=== PATIENT | male | born 1950 | race Caucasian/White ===

== ENCOUNTER 2018-05-09 00:38 | Emergency (ER) | payer OTHER ==
[2018-05-09 00:59] LABS: ADD MAN DIFF? NO
[2018-05-09 01:00] LABS: WHITE BLOOD COUNT 13.9 10^3/ul (4.8-10.8)
[2018-05-09 01:00] LABS: BASOPHIL # 0.2 10^3/ul (0.0-0.1); BASOPHILS % 1.5 % (0.0-2.0); EOSINOPHILS # 1.5 10^3/ul (0.0-0.5); EOSINOPHILS % 11.1 % (0.0-7.0); HEMATOCRIT 43.3 % (42.0-52.0); HEMOGLOBIN 13.8 g/dl (14.0-18.0); LYMPHOCYTES # 3.6 10^3/ul (0.8-2.9); LYMPHOCYTES % 25.9 % (15.0-51.0); MEAN CORPUSCULAR HEMOGLOBIN 26.5 pg (29.0-33.0); MEAN CORPUSCULAR HGB CONC 31.9 g/dl (32.0-37.0); MEAN CORPUSCULAR VOLUME 83.1 fl (82.0-101.0); MEAN PLATELET VOLUME 10.7 fl (7.4-10.4); NEUTROPHIL # 7.5 10^3/ul (1.6-7.5); NEUTROPHILS % 54.2 % (39.0-77.0); PLATELET COUNT 321 10^3/UL (140-415); RED BLOOD COUNT 5.21 10^6/ul (4.70-6.10); RED CELL DISTRIBUTION WIDTH 16.1 % (11.5-14.5)
[2018-05-09] MEDS: morphine 4 MG/ML VIAL IV ×2 (01:10→02:17)
[2018-05-09] MEDS: LIDOCAINE/MYLANTA 40 ML BTL PO (01:10)
[2018-05-09] MEDS: SOD CHLORIDE 0.9% 1,000 ML IV (01:11)
[2018-05-09] MEDS: FAMOTIDINE 20 MG INJ IV (01:11)
[2018-05-09] MEDS: ONDANSETRON 4 MG INJ IV (01:11)
[2018-05-09 01:21] LABS: INR 0.86; PARTIAL THROMBOPLASTIN TIME 30.8 Sec (23.0-35.0); PROTIME 11.8 Sec (11.9-14.9); PT RATIO 0.9
[2018-05-09 01:37] LABS: ALANINE AMINOTRANSFERASE 21 IU/L (13-69); ALBUMIN 4.9 g/dl (3.3-4.9); ALBUMIN/GLOBULIN RATIO 1.13; ALKALINE PHOSPHATASE 158 IU/L (42-121); ANION GAP 17 (5-13); ASPARTATE AMINO TRANSFERASE 24 IU/L (15-46); BILIRUBIN,INDIRECT 0.1 mg/dl (0-1.1); BILIRUBIN,TOTAL 0.1 mg/dl (0.2-1.3); BLOOD UREA NITROGEN 15 mg/dl (7-20); CARBON DIOXIDE 23 mmol/L (21-31); CHLORIDE 105 mmol/L (97-110); CREATININE 1.27 mg/dl (0.61-1.24); Estimated GFR 57 mL/min (>60); GLUCOSE 107 mg/dl (70-220); LIPASE 120 U/L (23-300); SODIUM 145 mmol/L (135-144); TOTAL PROTEIN 9.2 g/dl (6.1-8.1)
[2018-05-09 01:49] LABS: TROPONIN-I < 0.012 ng/ml (0.000-0.120)
== END 2018-05-09 03:31 | disposition home or self-care (01) ==
LOC: E/R 00:38
DX: K43.9 Ventral hernia without obstruction or gangrene (principal); R40.2142 Coma scale, eyes open, spontaneous, at arrival to emergency department; R40.2362 Coma scale, best motor response, obeys commands, at arrival to emergency department; R40.2252 Coma scale, best verbal response, oriented, at arrival to emergency department; I25.2 Old myocardial infarction; I10 Essential (primary) hypertension; Z85.51 Personal history of malignant neoplasm of bladder; Z87.891 Personal history of nicotine dependence
CPT/HCPCS: 36415; 74176; 80053; 83690; 84484; 85025; 85610; 85730; 93005; 96374; 96375; 96376; 99285-25